=== PATIENT | female | born 1990 | race Caucasian/White ===

== ENCOUNTER 2018-02-05 16:46 | Outpatient (REF) | payer BC, SELFPAY | END 2018-02-05 17:06 | LOC: NCHCN 16:46 | PROVIDERS: PCP Nurse Practitioner Family; Visit Provider Registered Nurse | DX: R30.0 Dysuria (principal) | CPT/HCPCS: 87086 ==

== ENCOUNTER 2018-02-16 12:38 | Outpatient (REF) | payer BC, SELFPAY ==
[2018-02-16 21:19] LABS: Abs Immature Grans 0.01 k/cumm (0.0-0.09); Absolute Basophil Count 0.01 k/cumm (0.0-0.2); Absolute Eosinophil Count 0.22 k/cumm (0.0-0.7); Absolute Lymphocyte Count 1.66 k/cumm (1.2-3.4); Absolute Monocyte Count 0.66 k/cumm (0.11-0.7); Absolute Neutrophil Count 4.71 k/cumm (1.2-6.7); Basophils % 0.1; HCT 43.6 % (36.0-46.0); HGB 14.3 g/dL (12.0-15.5); Immature Grans % 0.1; Lymphocytes % 22.8; Mean Corp. HGB Concentration 32.8 g/dL (32.0-36.0); Mean Corpuscular Hemoglobin 28.1 pg (27.0-33.0); Mean Corpuscular Volume 85.8 fL (80-95); Mean Platelet Volume 10.6 fL (8.0-11.0); Monocytes % 9.1; Neutrophils % 64.9; Platelet Count 328 x1000/uL (130-400); RBC 5.08 m/cumm (4.00-5.20); RBC Distribution Width 13.7 % (11.7-14.6); White Blood Cell Count 7.27 k/cumm (4.4-10.8)
[2018-02-16 21:30] LABS: TSH 7.42 uIU/mL (0.358-3.74)
== END 2018-02-16 12:58 ==
LOC: NCHCN 12:38
PROVIDERS: PCP Nurse Practitioner Family; Visit Provider Registered Nurse
DX: R10.11 Right upper quadrant pain (principal); E07.9 Disorder of thyroid, unspecified
CPT/HCPCS: 84439; 84443; 85025

== ENCOUNTER 2018-04-14 09:56 | Outpatient (REF) | payer BC, SELFPAY ==
[2018-04-14 22:03] LABS: TSH (W/Ref FT4) 2.63 uIU/mL (0.358-3.74)
== END 2018-04-14 10:16 ==
LOC: NCHCN 09:56
PROVIDERS: PCP Nurse Practitioner Family; Visit Provider Registered Nurse
DX: E03.9 Hypothyroidism, unspecified (principal)
CPT/HCPCS: 84443

== ENCOUNTER 2019-04-22 16:40 | Outpatient (REF) | payer BC, SELFPAY ==
[2019-04-22 22:01] LABS: HCT 41.6 % (36.0-46.0); HGB 13.6 g/dL (12.0-15.5); Mean Corp. HGB Concentration 32.7 g/dL (32.0-36.0); Mean Corpuscular Hemoglobin 27.9 pg (27.0-33.0); Mean Corpuscular Volume 85.4 fL (80-95); Mean Platelet Volume 10.8 fL (8.0-11.0); Platelet Count 220 x1000/uL (130-400); RBC 4.87 m/cumm (4.00-5.20); RBC Distribution Width 13.5 % (11.7-14.6); White Blood Cell Count 10.95 k/cumm (4.4-10.8)
[2019-04-22 22:42] LABS: Vitamin D 25 Total 22.5 ng/ml (30-100)
[2019-04-22 22:45] LABS: ALT 51 U/L (14-59); AST 19 U/L (15-37); Albumin 4.2 g/dL (3.4-5.0); Alkaline Phosphatase 61 U/L (46-116); Anion Gap 10.8 mmol/L (3-11); BUN 16 mg/dL (7-18); Bilirubin, Total 0.2 mg/dL (0.2-1.0); CO2 26.2 mmol/L (21.0-32.0); CREATININE 0.82 mg/dL (0.55-1.02); Calcium 9.4 mg/dL (8.5-10.1); Chloride 104 mmol/L (98-107); Glucose 106 mg/dL (74-106); Potassium 4.2 mmol/L (3.5-5.1); Sodium 141 mmol/L (136-145); TSH (W/Ref FT4) 3.73 uIU/mL (0.36-3.74); Total Protein 7.2 g/dL (6.4-8.2); Vitamin B12 646 pg/mL (193-986)
[2019-04-27 14:42] LABS: Chlamydia Result Negative (Negative)
[2019-04-27 14:43] LABS: GC Result Negative (Negative)
== END 2019-04-22 17:00 ==
LOC: NCHCN 16:40
PROVIDERS: PCP Nurse Practitioner Family; Visit Provider Registered Nurse
DX: R10.30 Lower abdominal pain, unspecified (principal); N92.6 Irregular menstruation, unspecified; N94.10 Unspecified dyspareunia; F41.8 Other specified anxiety disorders; E03.9 Hypothyroidism, unspecified; Z11.3 Encounter for screening for infections with a predominantly sexual mode of transmission
CPT/HCPCS: 80053; 82306; 85027; 87491; 87591; 82607; 84443; 87480; 87510; 87660

== ENCOUNTER 2019-05-07 12:41 | Outpatient (REF) | payer BC, SELFPAY ==
[2019-05-07 21:00] LABS: Abs Immature Grans 0.04 k/cumm (0.0-0.09); Absolute Basophil Count 0.05 k/cumm (0.0-0.2); Absolute Eosinophil Count 0.34 k/cumm (0.0-0.7); Absolute Lymphocyte Count 1.66 k/cumm (1.2-3.4); Absolute Monocyte Count 0.76 k/cumm (0.11-0.7); Absolute Neutrophil Count 5.02 k/cumm (1.2-6.7); Basophils % 0.6; Eosinophils % 4.3; HCT 40.1 % (36.0-46.0); HGB 13.2 g/dL (12.0-15.5); Immature Grans % 0.5 %; Lymphocytes % 21.1; Mean Corp. HGB Concentration 32.9 g/dL (32.0-36.0); Mean Corpuscular Volume 85.1 fL (80-95); Mean Platelet Volume 9.5 fL (8.0-11.0); Monocytes % 9.7; Neutrophils % 63.8; Platelet Count 283 x1000/uL (130-400); RBC 4.71 m/cumm (4.00-5.20); RBC Distribution Width 13.5 % (11.7-14.6); White Blood Cell Count 7.87 k/cumm (4.4-10.8)
[2019-05-07 21:22] LABS: ALT 166 U/L (14-59); AST 42 U/L (15-37); Albumin 3.6 g/dL (3.4-5.0); Alkaline Phosphatase 97 U/L (46-116); Anion Gap 7.1 mmol/L (3-11); BUN 9 mg/dL (7-18); Bilirubin, Total 0.3 mg/dL (0.2-1.0); CO2 30.9 mmol/L (21.0-32.0); CREATININE 0.71 mg/dL (0.55-1.02); Calcium 9.1 mg/dL (8.5-10.1); Chloride 104 mmol/L (98-107); Glucose 100 mg/dL (74-106); Potassium 4.2 mmol/L (3.5-5.1); Sodium 142 mmol/L (136-145); Total Protein 7.1 g/dL (6.4-8.2)
[2019-05-07 21:42] LABS: Diff Comment Diff Reviewed
[2019-05-07 21:46] LABS: RBC Morphology Normal
== END 2019-05-07 13:01 ==
LOC: NCHCN 12:41
PROVIDERS: PCP Nurse Practitioner Family; Visit Provider Family Medicine
DX: R10.30 Lower abdominal pain, unspecified (principal)
CPT/HCPCS: 80053; 85025

== ENCOUNTER 2019-08-04 11:26 | Outpatient (REF) | payer BC, SELFPAY ==
[2019-08-04 21:23] LABS: Anion Gap 9.4 mmol/L (3-11); BUN 18 mg/dL (7-18); CO2 28.6 mmol/L (21.0-32.0); CREATININE 0.97 mg/dL (0.55-1.02); Calcium 9.6 mg/dL (8.5-10.1); Chloride 103 mmol/L (98-107); Glucose 94 mg/dL (74-106); Potassium 4.4 mmol/L (3.5-5.1); Sodium 141 mmol/L (136-145)
[2019-08-04 21:40] LABS: Hemoglobin A1C 5.9 % (3.8-5.6)
== END 2019-08-04 11:46 ==
LOC: NCHCN 11:26
PROVIDERS: PCP Nurse Practitioner Family; Visit Provider Registered Nurse
DX: R74.0 Nonspecific elevation of levels of transaminase and lactic acid dehydrogenase [LDH] (principal); R73.03 Prediabetes
CPT/HCPCS: 80048; 83036

== ENCOUNTER 2019-12-30 16:56 | Outpatient (REF) | payer BC, SELFPAY ==
[2019-12-30 20:49] LABS: Hemoglobin A1C 6.1 % (<5.7)
[2019-12-30 21:02] LABS: Calculated LDL 115 mg/dL (<100); Cholesterol 169 mg/dL (<200); HDL Cholesterol 25 mg/dL (40-60); Triglyceride 145 mg/dL (<150)
[2020-01-03 08:17] LABS: SARS-CoV-2 RNA Undetected (Undetected); SARS-CoV-2 Specimen Source Nasopharynx
== END 2019-12-30 17:16 ==
LOC: NCHCN 16:56
PROVIDERS: PCP Nurse Practitioner Family; Visit Provider Registered Nurse
DX: Z20.828 Contact with and (suspected) exposure to other viral communicable diseases (principal); R73.03 Prediabetes; E66.9 Obesity, unspecified
CPT/HCPCS: 80061; U0003; 83036

== ENCOUNTER 2020-01-13 22:19 | Outpatient (REF) | payer BC, SELFPAY ==
[2020-01-17 21:48] LABS: Patient Race White; SARS-CoV-2 RNA Undetected (Undetected); SARS-CoV-2 Specimen Source Nasopharynx
== END 2020-01-13 22:39 ==
LOC: NCHCN 22:19
PROVIDERS: PCP Nurse Practitioner Family; Visit Provider Registered Nurse
DX: Z11.59 Encounter for screening for other viral diseases (principal)
CPT/HCPCS: U0003

== ENCOUNTER 2020-02-02 13:32 | Outpatient (REF) | payer BC, SELFPAY ==
[2020-02-04 23:17] LABS: Patient Race White; SARS-CoV-2 RNA Undetected (Undetected); SARS-CoV-2 Specimen Source Nasopharynx
== END 2020-02-02 13:52 ==
LOC: NCHCN 13:32
PROVIDERS: PCP Nurse Practitioner Family; Visit Provider Registered Nurse
DX: Z20.828 Contact with and (suspected) exposure to other viral communicable diseases (principal)
CPT/HCPCS: U0003

== ENCOUNTER 2020-06-15 19:53 | Outpatient (REF) | payer BC, SELFPAY ==
[2020-06-17 17:09] LABS: COVID-19 RT-PCR UVMMC Result Negative (Negative)
== END 2020-06-15 19:54 | disposition home or self-care (01) ==
LOC: NCHCN 19:53
PROVIDERS: PCP Nurse Practitioner Family; Visit Provider Nurse Practitioner Family
DX: H92.03 Otalgia, bilateral (principal); Z20.822 Contact with and (suspected) exposure to COVID-19
CPT/HCPCS: U0003

== ENCOUNTER 2020-10-19 21:01 | Outpatient (REF) | payer BC, SELFPAY ==
[2020-10-19 22:02] LABS: TSH (W/Ref FT4) 2.95 uIU/mL (0.36-3.74)
== END 2020-10-19 21:02 | disposition home or self-care (01) ==
LOC: NCHCN 21:01
PROVIDERS: PCP Nurse Practitioner Family; Visit Provider Registered Nurse
DX: E03.9 Hypothyroidism, unspecified (principal)
CPT/HCPCS: 84443

== ENCOUNTER 2021-01-15 16:59 | Outpatient (REF) | payer BC, SELFPAY ==
[2021-01-15 22:01] LABS: Abs Immature Grans 0.04 10^3/uL (0.0-0.06); Absolute Basophil Count 0.07 10^3/uL (0.0-0.2); Absolute Eosinophil Count 0.91 10^3/uL (0.0-0.7); Absolute Lymphocyte Count 2.86 10^3/uL (1.2-3.4); Absolute Monocyte Count 0.72 10^3/uL (0.1-0.8); Absolute Neutrophil Count 7.63 10^3/uL (1.2-6.7); Basophils % 0.6; Eosinophils % 7.4; HCT 40.3 % (36.0-46.0); Immature Grans % 0.3; Lymphocytes % 23.4; MCH 27.5 pg (27.0-33.0); MCHC 32.3 % (32.0-36.0); MCV 85.2 fL (80-95); MPV 10.6 fL (8.0-11.0); Monocytes % 5.9; Neutrophils % 62.4; Nucleated RBC 0 %; Platelet Count 360 10^3/uL (130-400); RBC 4.73 10^6/uL (3.93-5.22); RDW 13.2 % (11.7-14.6); WBC 12.23 10^3/uL (4.4-10.8)
[2021-01-15 22:26] LABS: ALT 52 U/L (14-59); AST 18 U/L (15-37); Albumin 4.3 g/dL (3.4-5.0); Alkaline Phosphatase 72 U/L (46-116); Anion Gap 10.5 mmol/L (3-11); BUN 13 mg/dL (7-18); Bilirubin, Total 0.3 mg/dL (0.2-1.0); CO2 26.5 mmol/L (21.0-32.0); CREATININE 1.1 mg/dL (0.55-1.02); Calcium 9.3 mg/dL (8.5-10.1); Chloride 103 mmol/L (98-107); Estimated GFR 57.93 (mL/min/1.73m2); Glucose 89 mg/dL (74-106); Potassium 3.9 mmol/L (3.5-5.1); Sodium 140 mmol/L (136-145); Total Protein 7.4 g/dL (6.4-8.2)
[2021-01-17 10:56] LABS: Hepatitis A Antibody IgM Negative (Negative); Hepatitis B Core Antibody Negative (Negative); Hepatitis B surface Ag Negative (Negative); Hepatitis C Ab w Rflx HCV PCR Negative (Negative)
== END 2021-01-15 17:00 | disposition home or self-care (01) ==
LOC: NCHCN 16:59
PROVIDERS: PCP Nurse Practitioner Family; Visit Provider Nurse Practitioner Community Health
DX: K92.1 Melena (principal); R19.7 Diarrhea, unspecified
CPT/HCPCS: 80053; 86704; 86709; 86803; 87340; 85025

== ENCOUNTER 2021-01-16 10:20 | Outpatient (REF) | payer BC, SELFPAY ==
[2021-01-16 15:48] LABS: C Diff PCR Negative (Negative)
[2021-01-17 13:02] LABS: Campylobacter PCR Negative (Negative); Salmonella PCR Negative (Negative); Shiga Toxin PCR Negative (Negative); Shigella/Enteroinvasive Ecoli Negative (Negative)
== END 2021-01-16 10:21 | disposition home or self-care (01) ==
LOC: NCHCN 10:20
PROVIDERS: PCP Nurse Practitioner Family; Referring Provider Nurse Practitioner Community Health; Visit Provider Nurse Practitioner Community Health
DX: R19.7 Diarrhea, unspecified (principal); K92.1 Melena
CPT/HCPCS: 87329; 87493; 87505; 87177

== ENCOUNTER 2021-01-22 15:50 | Outpatient (REF) | payer BC, SELFPAY ==
[2021-01-22 21:02] LABS: Anion Gap 7.6 mmol/L (3-11); BUN 13 mg/dL (7-18); CO2 28.4 mmol/L (21.0-32.0); CREATININE 0.9 mg/dL (0.55-1.02); Calcium 9.3 mg/dL (8.5-10.1); Chloride 104 mmol/L (98-107); Glucose 93 mg/dL (74-106); Sodium 140 mmol/L (136-145)
== END 2021-01-22 15:51 | disposition home or self-care (01) ==
LOC: NCHCN 15:50
PROVIDERS: PCP Nurse Practitioner Family; Visit Provider Nurse Practitioner Community Health
DX: R19.7 Diarrhea, unspecified (principal); R79.89 Other specified abnormal findings of blood chemistry
CPT/HCPCS: 80048

== ENCOUNTER 2021-02-09 16:38 | Outpatient (REF) | payer BC, SELFPAY ==
[2021-02-11 14:03] LABS: COVID-19 RT-PCR UVMMC Result Negative (Negative)
== END 2021-02-09 16:39 | disposition home or self-care (01) ==
LOC: NCHCN 16:38
PROVIDERS: PCP Nurse Practitioner Family; Visit Provider Registered Nurse
DX: Z20.822 Contact with and (suspected) exposure to COVID-19 (principal); R19.7 Diarrhea, unspecified; R50.9 Fever, unspecified
CPT/HCPCS: U0003

== ENCOUNTER 2024-08-01 16:23 | Emergency (ER) | payer BC, SELFPAY ==
[2024-08-01 16:26] VITALS: BP 151/99; PULSE 76; RESP 20; TEMP 36.9; O2SAT 97
--- NOTE | 2024-08-01 16:53 | ED.GENADUL_ITS ---
Discharge Plan Disposition Patient Disposition: Home Condition: Stable Discharge Details Clinical Impression: Allergic reaction Primary Care Provider: Unknown,Unknown ED Provider: Shereen Peralta Home Meds and New Rx's Prescriptions: New epinephrine [EpiPen] 0.3 mg/0.3 mL auto-injector 0.3 mg IM Q5-15M PRNQty: 2 0RF Rx Instructions: do not exceed 3 doses per episode No Action albuterol sulfate 90 mcg/actuation HFA aerosol inhaler 2 puff INHALATION Q6H PRN Patient Comments: INHALE ONE TO TWO PUFFS BY MOUTH EVERY 4 TO 6 HOURS NEEDED fluticasone propionate 110 mcg/actuation HFA aerosol inhaler 2 puff INHALATION Q12H Patient Comments: INHALE TWO PUFFS BY MOUTH TWICE A DAY loratadine [Claritin] 10 mg tablet 10 mg PO DAILY Discharge Instructions Instructions: Allergic Reaction ED Additional Instructions: You were seen in the emergency department today for evaluation of a skin rash and tingling of your tongue and fingertips. In our department you do full physical examination performed, received Benadryl for your presumed allergic reaction, though we are not certain what it was that you reacted to, and had laboratory studies that were reassuring. Unfortunately, we are sometimes unable to determine the exact cause of symptoms in the emergency department despite appropriate workup, and neck step to include call your primary care provider to schedule follow-up appointment, as they may wish to refer you for allergy testing. Additionally, I provided you with a prescription for an EpiPen. This should be used for anaphylactic reaction, which is an allergic reaction that involves 2 or more organ system such as your skin (rash), your airway (shortness of breath, throat tightening) or GI system (nausea). If you use this medication, you need to come to the emergency department to be evaluated. You can also continue to take your Claritin as prescribed, and use Benadryl as needed for ongoing itchy rash. Please follow-up with your primary care provider in the next few days to discuss this visit and any symptoms that change, worsen, or persist. Thank you for allowing us to be part of your care. HPI General Mode of arrival: ambulatory . Date/Time Provider Initiated Documentation: 08/01/24 16:31 . Limitations to Documentation: no limitations . Information obtained by: patient, family and old records reviewed . HPI Narrative: HPI: This is a 34-year-old female patient with a past medical history significant for multiple food allergies, asthma, presenting for evaluation of allergic reaction. The patient reports that around 115 this afternoon she noted a rash on her bilateral arms. This was red but not itchy, and has since reduced in severity and distribution. She also noted some flushing/swelling of her cheeks, which has improved but not entirely resolved. She also notices a tingly feeling on the top of her tongue and a metallic taste in her mouth. She reports that this is not a similar pattern to any of her other food allergies, did have lunch approximately 1 hour prior to onset of symptoms. She was at a baby shower this weekend and states that she could have a multiple exposures to new soaps, detergents, etc., but does not know of any specific inciting agent. The patient has never had an anaphylactic reaction, and did not take any medications prior to arrival. She did take a daily Claritin, did not take Benadryl prior to arrival. This is otherwise an isolated event and the patient was in her normal state of health. She denies throat swelling, shortness of b reath, abdominal pain or nausea. Exam: Gen: Awake and alert, in no apparent distress HEENT: Non-icteric sclera, no conjunctival injection, PERRL. No rhinorrhea, posterior pharynx without edema or swelling, no stridor, I note no visualized abnormalities in the oral cavity. Neck: Supple Lungs: No apparent respiratory distress, normal respiratory effort. Lung sounds clear and equal bilaterally without wheezes, rhonchi, rales CV: Appears well perfused, heart with regular rate and rhythm. No murmurs auscultated Abdomen: Non-distended, soft, nontender MSK: Moves 4 extremities without apparent limitation in ROM Skin: Visualized skin without rashes at this time, no cyanosis. Neuro: Normal Gait, no obvious focal deficits or facial asymmetry. Speaks in full, clear sentences. Psych: Appropriate for situation. MDM: This is a 34-year-old female patient presenting for evaluation of rash and tingling of the tongue. My differential includes but is not limited to allergic reaction, the patient has no evidence of respiratory or GI involvement to suggest anaphylaxis. I did consider contact dermatitis, and other exposure type rashes. I note no active rash to assess at this time to assist in the differential. The patient is reassuringly appropriately protecting her airway, has no wheezing to suggest reactive airway disease exacerbation, has no fever to suggest URI or pneumonia. Prior to this event she was in her normal state of health and maintaining p.o. intake, and have a low concern for metabolic and electrolyte derangement, kidney injury. We will establish an IV and provide the patient with a dose of Benadryl for symptom management. I do not see an indication to proceed with epinephrine at this time. Patient will be monitored for improvement or worsening of her symptoms. ED Course: On reassessment the patient's cheek redness per this provider's examination has improved, and she has not developed any throat swelling, shortness of breath or wheezing/stridor. I have a low concern for development of anaphylaxis, though the patient does state that her tongue tingling has continued. She also states that she has now developed tingling of her bilateral 10 fingertips and her lips. The patient does not have any abnormal positioning in the bed to suggest nerve compression or palsy, states that she has not had this experience in the past with any of her other allergies, and is not demonstrating symptoms of tachypnea to suggest carpopedal spasms. We did discuss next steps and ultimately we will proceed with laboratory evaluation to evaluate for any electrolyte abnormalities which might account for these new symptoms. I independently interpreted the laboratory studies, which show no significant leukocytosis, anemia, or thrombocytopenia. The chemistry panel is without evidence of electrolyte abnormality, kidney dysfunction, or liver injury. The patient remains without evidence again flexes on a repeat assessment, I am unsure the exact cause of her bilateral finger tingling, I do not feel that it represents an unidentified emergent condition after the above-noted workup. At this time, the patient has had a full medical evaluation and is safe for disc harge to home. They are hemodynamically stable, ambulatory, and tolerating PO. They are understanding of the follow-up plan and return precautions. They left our facility without incident. Shereen Peralta MD Related Data Home Medications ?Medication ?Instructions ?Recorded ?Confirmed albuterol sulfate 90 mcg/actuation 2 puff inhalation Q6H PRN 08/01/24 08/01/24 aerosol inhaler epinephrine 0.3 mg/0.3 mL 0.3 mg (0.3 mL) IM Q5-15M PRN #2 ea 08/01/24 injection, auto-injector (EpiPen) fluticasone propionate 110 2 puff inhalation Q12H 08/01/24 08/01/24 mcg/actuation HFA aerosol inhaler loratadine 10 mg tablet (Claritin) 10 mg PO DAILY 08/01/24 08/01/24 Previous Rx's ?Medication ?Instructions ?Recorded epinephrine 0.3 mg/0.3 mL 0.3 mg (0.3 mL) IM Q5-15M PRN #2 ea 08/01/24 injection, auto-injector (EpiPen) Allergies Allergy/AdvReac Type Severity Reaction Status Date / Time avocado Allergy Intermediate Nausea Verified 08/01/24 16:34 banana Allergy Intermediate Nausea Verified 08/01/24 16:34 ciprofloxacin (From Cipro) Allergy Intermediate Diarrhea Verified 08/01/24 16:34 [id number] (From Allergy Intermediate Skin Rash Verified 08/01/24 16:34 Emgality Pen) gluten Allergy Intermediate Headache Verified 08/01/24 16:34 lactose Allergy Intermediate Diarrhea Verified 08/01/24 16:34 mushroom Allergy Intermediate Diarrhea Verified 08/01/24 16:34 Sulfa (Sulfonamide Allergy Intermediate Skin Rash Verified 08/01/24 16:34 Antibiotics) General Stated Complaint: RashLesion PAULINA: 3 Course Vital Signs Vital signs: Vital Signs Temperature 36.9 C 08/01/24 16:26 Pulse 76 08/01/24 16:26 Respiratory Rate 20 08/01/24 16:26 Blood Pressure 151/99 H 08/01/24 16:26 Pulse Oximetry 97 08/01/24 16:26 Temperature 36.9 C 08/01/24 16:26 Pulse 76 08/01/24 16:26 Respiratory Rate 20 08/01/24 16:26 Blood Pressure 151/99 H 08/01/24 16:26 Blood Pressure Position Sitting 08/01/24 16:26 Pulse Oximetry 97 08/01/24 16:26 Oxygen Delivery Method Room Air 08/01/24 16:26 Oxygen Flow Rate 0 08/01/24 16:26 Medical Decision Making Quality:SDOH Health Related Social Needs: No Data to Display PFSH All Active Problems (Updated 08/01/24 @ 19:08 by Shereen Peralta MD) Allergic reaction (Acute) Social History Smoking risk assessment performed?: No PAWSS Have you Been Recently Intoxicated or Drunk Within the Last 30 days?: No Have you Ever Experienced Previous Episodes of Alcohol Withdrawal?: No Have you ever Experienced Withdrawal Seizures?: No Have you ever Experienced Delirium Tremens(DT)s?: No Have you ever undergone Alcohol Rehabilitation Treatment (i.e, inpt ot outpatient treatment programs)?: No Have you ever Experienced Blackouts?: No Have you ever Combined Alcohol with other Downers within the last 90 days?: No Have you ever Combined Alcohol with any other Substance of Abuse during the last 90 days?: No Positive Blood Alcohol level on Presentation? [PCS.BAL]: No Evidence of Increased Autonomic Activity (i.e. HR>120, tremor, sweating, agitation, nausea)?: No Result: 0
[2024-08-01] MEDS: diphenhydrAMINE 50 MG/ML VIAL 25 MG IVP (17:00)
[2024-08-01 18:29] LABS: Abs Immature Grans 0.02 10^3/uL (0.0-0.06); Absolute Basophil Count 0.03 10^3/uL (0.0-0.2); Absolute Eosinophil Count 0.28 10^3/uL (0.0-0.7); Absolute Lymphocyte Count 2.68 10^3/uL (1.2-3.4); Absolute Monocyte Count 0.73 10^3/uL (0.1-0.8); Absolute Neutrophil Count 5.73 10^3/uL (1.2-6.7); Basophils % 0.3 %; HCT 39.8 % (36.0-46.0); HGB 13.2 g/dL (11.2-15.7); Immature Grans % 0.2 %; Lymphocytes % 28.3 %; MCH 28.3 pg (27.0-33.0); MCHC 33.2 % (32.0-36.0); MCV 85 fL (80-95); MPV 9.6 fL (8.0-11.0); Monocytes % 7.7 %; Neutrophils % 60.5 %; Platelet Count 308 10^3/uL (130-400); RBC 4.67 10^6/uL (3.93-5.22); RDW 13.2 % (11.7-14.6); RDW-SD 40.9 fL; WBC 9.47 10^3/uL (4.4-10.8)
[2024-08-01 18:44] LABS: ALT 35 U/L (14-59); AST 12 U/L (15-37); Albumin 3.8 g/dL (3.4-5.0); Alkaline Phosphatase 68 U/L (46-116); Anion Gap 7.7 mmol/L (3-11); BUN 14 mg/dL (7-18); Bilirubin, Total 0.2 mg/dL (0.2-1.0); CO2 29.3 mmol/L (21.0-32.0); CREATININE 0.9 mg/dL (0.55-1.02); Calcium 9.2 mg/dL (8.5-10.1); Chloride 106 mmol/L (98-107); Glucose 99 mg/dL (74-106); Magnesium 2.1 mg/dL (1.8-2.4); Potassium 4.2 mmol/L (3.5-5.1); Sodium 143 mmol/L (136-145); Total Protein 7.1 g/dL (6.4-8.2)
[2024-08-01 18:45] VITALS: BP 131/68; PULSE 77; RESP 16; O2SAT 100
== END 2024-08-01 19:19 | disposition home or self-care (01) ==
PROVIDERS: Emergency Provider Emergency Medicine
DX: T78.40XA Allergy, unspecified, initial encounter (principal); R21 Rash and other nonspecific skin eruption
CPT/HCPCS: 36415; 80053; 96374; 99284; 83735; 85025; J1200

== ENCOUNTER → 2025-03-04 13:47 | Outpatient (CLI) | payer BC, SELFPAY ==
--- NOTE | 2025-03-04 15:35 | DI.RAD_ITS ---
Exam(s) XR ABDOMEN FLAT PLATE EXAM: 2D digital imaging was performed. CLINICAL HISTORY: LOOSE STOOLS R19.5 ? OVERFLOW DIARRHEA ? INCREASED STOOL BURDEN. COMPARISON: No exams were available for comparison TECHNIQUE: Supine views of the abdomen performed. Three views were obtained. FINDINGS: BOWEL GAS PATTERN: Nondistended. There is a small amount of retained stool throughout the colon. CALCIFICATIONS: No radiopaque calcifications. OSSEOUS STRUCTURES: Normal for age. OTHER FINDINGS: None. IMPRESSION: 1. Nonobstructive bowel gas pattern. 2. Small amount of stool seen throughout the colon. DATA REPOSITORY: RADIATION DOSE DELIVERED:
== END ==
LOC: DI 13:50
PROVIDERS: PCP Pediatrics; Visit Provider Nurse Practitioner Gerontology
DX: R19.5 Other fecal abnormalities (principal)
CPT/HCPCS: 74018